=== PATIENT | male | born 1980 | race Caucasian/White ===

== ENCOUNTER 2017-10-09 21:16 | Inpatient (IN) | payer OTHER ==
[~2017-10-09] VITALS: Ht 165.1 cm; Wt 81.2 kg
[2017-10-09 21:22] VITALS: BP 134/85
--- NOTE | 2017-10-09 21:34 | NUR ---
PT ESCORTED TO ROOM 1 VIA WHEEL CHAIR WITH VSS.
--- NOTE | 2017-10-09 21:35 | NUR ---
37/M CAME IN ED WITH FAMILY, C/O 03/14 L TESTICULAR PAIN, NONRADIATING, X2 DAYS. PT STATED HE WAS "TOOK A PILL FROM THE [employer]QU[employer] STORE, WAS MESSING AROUND WITH MY GIRLFRIEND." L TESTICLE SWOLLEN WITH SLIGHT REDNESS, VERY TENDER ON PALPATION. PT REPORTS LIGHTHEADEDNESS AND HEADACHE. PT DENIES FEVER, CP, SOB, N/V/D. DENIES HX, RX. NKA. ER MD DR STEIN NOTIFIED.
[2017-10-09] MEDS ORDERED: KETOROLAC 15 MG/ML VIAL IVP ONE (22:15)
[2017-10-09] MEDS ORDERED: NACL 0.9% 1,000 ML IV SCH (22:15)
[2017-10-09] MEDS ORDERED: ONDANSETRON 4 MG/2 ML VIAL IVP ONE (22:15)
[2017-10-09] MEDS ORDERED: cefTRIAXone 1,000 MG in DEXT 5% MINI-BAG PLUS 50 ML IV ONE (22:15)
[2017-10-09] MEDS ORDERED: LEVOFLOXACIN 750 MG TAB PO ONE (22:15)
[2017-10-09] MEDS ORDERED: MORPHINE SULFATE 10 MG/ML SYR IVP ONE (22:15)
[2017-10-09] MEDS ORDERED: cefTRIAXone 1,000 MG VIAL ONE (22:25)
[2017-10-09] MEDS ORDERED: MORPHINE SULFATE 4 MG/ML SYR ONE (22:26)
[2017-10-09 22:42] LABS: BASOPHILS # (AUTO) 0.1 K/uL (0.00-0.22); BASOPHILS % (AUTO) 0.7 % (0.0-2.0); HEMATOCRIT 47.2 % (36-52); HEMOGLOBIN 16.2 g/dL (12.0-18.0); LYMPHOCYTES # (AUTO) 2.4 K/uL (2.0-11.5); LYMPHOCYTES % (AUTO) 14.5 % (20.5-51.1); MEAN CORPUSCULAR HEMOGLOBIN 31 pg (27-31); MEAN CORPUSCULAR HGB CONC 34 g/dL (33-37); MEAN CORPUSCULAR VOLUME 88.9 fL (80-94); MONOCYTES # (AUTO) 1.2 K/uL (0.8-1.0); MONOCYTES % (AUTO) 7.1 % (1.7-9.3); NEUTROPHILS # (AUTO) 12.8 K/uL (1.8-7.7); NEUTROPHILS % (AUTO) 77.7 % (42.2-75.2); PLATELET COUNT (AUTO) 268 K/uL (140-450); RED BLOOD CELL COUNT(AUTO) 5.31 MIL/uL (4.20-6.10); RED CELL DISTRIBUTION WIDTH 12.5 % (11.6-13.7); WHITE BLOOD COUNT (AUTO) 16.4 K/uL (4.8-10.8)
[2017-10-09 22:50] LABS: ANION GAP 13.4 (8-16); CARBON DIOXIDE 27.8 mmol/L (21-32); CREATININE 1.3 mg/dL (0.7-1.3); POTASSIUM 4.2 mmol/L (3.5-5.1)
[2017-10-09 22:56] LABS: ALBUMIN 3.6 g/dL (3.4-5.0); TOTAL BILIRUBIN 0.5 mg/dL (0.0-1.0)
--- NOTE | 2017-10-09 23:00 | NUR ---
PT STILL UNABLE TO COLLECT URINE, WILL CONTINUE TO ATTEMPT TO COLLECT
[2017-10-10] MEDS ORDERED: NACL 0.9% 2,000 ML IV ONE
--- NOTE | 2017-10-10 | NUR ---
Patient appears to be resting comfortably in bed. Vital Signs within normal limits. Pt reports tolerable pain. Respirations even and unlabored.
--- NOTE | 2017-10-10 00:08 | NUR ---
SPOKE TO EFREN FROM [facility]
[2017-10-10] MEDS ORDERED: ONDANSETRON 4 MG/2 ML VIAL IVP PRN (01:15)
[2017-10-10] MEDS ORDERED: AZITHROMYCIN 500 MG in DEXTROSE 5% 250 ML IV SCH (01:15)
--- NOTE | 2017-10-10 01:30 | NUR ---
PT RESTING COMFORTABLY IN BED, REPORTS TOLERABLE PAIN AT THIS TIME. VSS, RR EVEN AND UNLABORED. PT STILL UNABLE TO COLLECT URINE SAMPLE, WILL ENDORSE TO CONTINUING RN
--- NOTE | 2017-10-10 01:36 | NUR ---
PATIENT TAKEN TO THE FLOOR
[2017-10-10 01:40] VITALS: BP 130/89
--- NOTE | 2017-10-10 01:40 | NUR ---
Admitted from ER , with chief complaint of LEFT TESTICULAR PAIN , 37 y/o ,Male, Appropriate,AAOX4, NO S/S OF ACUTE DISTRESS. PT STATES PAIN IS 3/10 AND TOLERABLE. IV SITE PATENT AND INTACT. PT oriented to call light, bed, phone,television, bathroom, smoking policy,visiting hours, procedures, ID bracelet on. Belongings list checked. CALL LIGHT WITHIN REACH. SAFETY MEASURES ENSURED. WILL CONTINUE TO MONITOR.
--- NOTE | 2017-10-10 01:40 | NUR ---
REPORT GIVEN AND CARE TRANSFERED TO [facility] [place], ROOM [address]B, VIA [facility] WITH VSS.
[2017-10-10] MEDS ORDERED: AZITHROMYCIN 500 MG INJ VIAL IV ONE (02:35)
[2017-10-10] MEDS: NACL 0.9% 1,000 ML IV SCH ×3 (03:17→14:15)
[2017-10-10 04:00] VITALS: BP 128/78
[2017-10-10] MEDS: MORPHINE SULFATE 4 MG/ML SYR IVP PRN ×4 (05:26→19:08)
[2017-10-10 06:22] LABS: BILIRUBIN,URINE NEGATIVE (NEGATIVE); BLOOD, URINE NEGATIVE (NEGATIVE); COLOR,URINE YELLOW (YELLOW); LEUKOCYTE ESTERASE ,URINE 1+ (NEGATIVE); NITRITE, URINE NEGATIVE (NEGATIVE); UGLUCOSE NEGATIVE (NEGATIVE)
--- NOTE | 2017-10-10 07:20 | NUR ---
RECEIVED REPORT FROM LOZENGE MAKER HELPER NURSE. PATIENT LYING DOWN IN BED SLEEPING, AROUSABLE BY VOICE. NO DISTRESS NOTED. PAIN WITHIN TOLERABLE AT THIS TIME DUE TO MORPHINE GIVEN JUST RECENTLY BY NIGHT NURSE. RESPIRATIONS EVEN, UNLABORED, ON ROOM AIR. AAOX4, CALM, COOPERATIVE, SKIN COLOR APPROPRIATE TO ETHNICITY, WARM TO TOUCH. HAS LEFT TESTICLE SWELLING WITH REDNESS, HOWEVER, SKIN IS INTACT THROUGHOUT BODY. ABLE TO AMBULATE BUT CAUSES A LOT OF PAIN DUE TO EPIDIDYMITIS. IV SITE INTACT, PATENT, AND RUNNING IVF PER ORDERS. ABDOMEN SOFT, NON-DISTENDED. LUNGS CTA ON ALL LOBES. REVIEWED PLAN OF CARE WITH PATIENT. PATIENT VERBALIZED UNDERSTANDING. SAFETY MEASURES IN PLACE, CALL LIGHT WITHIN REACH. WILL CONTINUE OT MONITOR.
[2017-10-10 07:33] LABS: APPEARANCE,URINE SLIGHTLY HAZY (CLEAR)
[2017-10-10 07:34] LABS: RBC,URINE NONE SEEN /HPF (0-5); WBC,URINE 80-100 /HPF (0-5)
[2017-10-10 08:00] VITALS: BP 133/95
[2017-10-10] MEDS: ACETAMINOPHEN 325 MG TAB PO PRN ×2 (08:58→19:40)
[2017-10-10] MEDS: ENOXAPARIN 40 MG/0.4 ML SYR SUBQ SCH (09:01)
--- NOTE | 2017-10-10 09:04 | NUR ---
PATIENT LYING IN BED. NO DISTRESS NOTED. COMPLAINS OF A HEADACHE AND HAS A FEVER WITH TEMP AT 100.9, TYLENOL GIVEN PER ORDERS. OTHER SCHEDULED MEDICATIONS DUE GIVEN. SAFETY MEASURES IN PLACE, CALL LIGHT WITHIN REACH. WILL CONTINUE TO MONITOR.
--- NOTE | 2017-10-10 10:00 | NUR ---
PATIENT COMPLAINTS OF 8/10 GROIN PAIN. MORPHINE GIVEN PER ORDERS. SAFETY MEASURES IN PLACE, CALL LIGHT WITHIN REACH. WILL CONTINUE TO MONITOR.
--- NOTE | 2017-10-10 10:58 | NUR ---
PATIENT AMBULATE TO BATHROOM AND BACK TO BED WITH SLOW, BUT STEADY GAIT. PAIN IS WITHIN TOLERABLE WITH MORPHINE GIVEN EARLIER. SAFETY MEASURES IN PLACE, CALL LIGHT WITHIN REACH. WILL CONTINUE TO MONITOR.
[2017-10-10 12:00] VITALS: BP 114/78
--- NOTE | 2017-10-10 12:00 | NUR ---
PATIENT SITTING IN BED WITH LUNCH TRAY IN FRONT. FAMILY MEMBER AT BEDSIDE TALKING WITH PATIENT. NO DISTRESS NOTED. PAIN WITHIN TOLERABLE. SAFETY MEASURES IN PLACE, CALL LIGHT WITHIN REACH. WILL CONTINUE TO MONITOR.
--- NOTE | 2017-10-10 13:09 | NUR ---
PATIENT LYING IN BED SLEEPING, NO DISTRESS NOTED. PAIN WITHIN TOLERABLE. SAFETY MEASURES IN PLACE, CALL LIGHT WITHIN REACH. WILL CONTINUE TO MONITOR.
--- NOTE | 2017-10-10 14:19 | NUR ---
Initial review faxed to [place] at [facility] at [phone]
--- NOTE | 2017-10-10 14:26 | NUR ---
PATIENT LYING IN BED COMPLAINING OF TESTICULAR PAIN, MORPHINE GIVEN PER MD ORDERS. SAFETY MEASURES IN PLACE, CALL LIGHT WITHIN REACH. WILL CONTINUE TO MONITOR.
[2017-10-10] MEDS ORDERED: HYDROcodone/APAP 5/325 MG 1 TAB TAB PO PRN (15:15)
--- NOTE | 2017-10-10 15:39 | NUR ---
PATIENT HAS BEEN SCREENED AND CATEGORIZED LOW NUTRITION RISK. PATIENT WILL BE SEEN WITHIN 7 DAYS OF ADMISSION. 10/16/[address]
[2017-10-10 16:00] VITALS: BP 112/72
--- NOTE | 2017-10-10 17:00 | NUR ---
PATIENT LYING DOWN IN BED SLEEPING, AROUSABLE BY VOICE. NO DISTRESS NOTED. DENIES ANY PAIN. SAFETY MEASURES IN PLACE, CALL LIGHT WITHIN REACH. WILL CONTINUE TO MONITOR.
--- NOTE | 2017-10-10 18:48 | NUR ---
PATIENT LYING IN BED SLEEPING, AROUSABLE BY VOICE. NO DISTRESS NOTED. DENIES ANY PAIN AT THIS TIME. SAFETY MEASURES IN PLACE, CALL LIGHT WITHIN REACH. WILL CONTINUE TO MONITOR.
--- NOTE | 2017-10-10 19:35 | NUR ---
GAVE REPORT TO BOOKING SUPERVISOR NURSE FOR CONTINUITY OF CARE. WILL CONTINUE TO MONITOR.
--- NOTE | 2017-10-10 19:36 | NUR ---
RECEIVED REPORT FROM DAY SHIFT NURSE FOR CONTINUITY OF CARE. PT AWAKE AO X4. PT IV NOTED LAC 20G NS 100ML/HR. PT NO S/S OF DISTRESS. NO SOB. ON RA. BED LOWERED CALL LIGHT WITHIN REACH WILL CONTINUE TO MONITOR.
--- NOTE | 2017-10-10 20:30 | NUR ---
PT HAD PREVIOUS FEVER. PT HAS NO FEVER ANYMORE. WILL CONTINUE TO MONITOR.
[2017-10-10] MEDS ORDERED: LEVOFLOXACIN 500 MG/D5W PREMIX 100 ML IV SCH (21:00)
[2017-10-11 00:06] VITALS: BP 122/79
--- NOTE | 2017-10-11 00:38 | NUR ---
ASSESSED VITALS ON PT. PT WNL. NO S/S OF DISTRESS. NO SOB. PT SLEEPING WILL CONTINUE TO MONITOR.
[2017-10-11] MEDS: ACETAMINOPHEN 325 MG TAB PO PRN (01:22)
[2017-10-11] MEDS ORDERED: ZOLPIDEM 5 MG TAB PO PRN (03:00)
[2017-10-11] MEDS ORDERED: ZOLPIDEM 5 MG TAB ONE (03:08)
[2017-10-11 04:00] VITALS: BP 140/83
--- NOTE | 2017-10-11 04:43 | NUR ---
PT IS ASLEEP. NO S/S OF DISTRESS. NO SOB. ON RA. WILL CONTINUE TO MONITOR.
[2017-10-11 05:46] LABS: BASOPHILS # (AUTO) 0.1 K/uL (0.00-0.22); BASOPHILS % (AUTO) 0.6 % (0.0-2.0); EOSINOPHILS % (AUTO) 0.5 % (0.0-4.0); HEMATOCRIT 43.3 % (36-52); HEMOGLOBIN 14.9 g/dL (12.0-18.0); LYMPHOCYTES # (AUTO) 1.9 K/uL (2.0-11.5); LYMPHOCYTES % (AUTO) 19.1 % (20.5-51.1); MEAN CORPUSCULAR HEMOGLOBIN 30 pg (27-31); MEAN CORPUSCULAR HGB CONC 34 g/dL (33-37); MEAN CORPUSCULAR VOLUME 88.4 fL (80-94); MONOCYTES # (AUTO) 0.9 K/uL (0.8-1.0); MONOCYTES % (AUTO) 9.6 % (1.7-9.3); NEUTROPHILS # (AUTO) 6.8 K/uL (1.8-7.7); NEUTROPHILS % (AUTO) 70.2 % (42.2-75.2); PLATELET COUNT (AUTO) 240 K/uL (140-450); RED CELL DISTRIBUTION WIDTH 12.5 % (11.6-13.7); WHITE BLOOD COUNT (AUTO) 9.7 K/uL (4.8-10.8)
[2017-10-11 06:22] LABS: ALBUMIN 2.9 g/dL (3.4-5.0); ANION GAP 13.7 (8-16); CARBON DIOXIDE 25.4 mmol/L (21-32); CREATININE 1.1 mg/dL (0.7-1.3); POTASSIUM 4.1 mmol/L (3.5-5.1); TOTAL BILIRUBIN 0.6 mg/dL (0.0-1.0)
--- NOTE | 2017-10-11 07:05 | NUR ---
RECEIVED REPORT FROM NIGHTSHIFT NURSE AT BEDSIDE. PATIENT IS ASLEEP BUT AROUSABLE AT THIS TIME. PATIENT IS ALERT AND ORIENTED X4. PATIENT PRESENTS IN RIGHT LATERAL SIDE LYING POSITION WITH NO PAIN. NO SIGNS OF RESPIRATORY DISTRESS. PATIENT HAS A LEFT AC 20G NOTED ON HIS ARM SALINE LOCK. UPDATED BOARD IN PATIENT'S ROOM. PUT CALL LIGHT WITHIN REACH OF PATIENT. WILL CONTINUE TO MONITOR PATIENT.
--- NOTE | 2017-10-11 07:15 | NUR ---
GAVE REPORT TO DAYSHIFT NURSE AT BEDSIDE FOR CONTINUITY OF CARE.
[2017-10-11 08:00] VITALS: BP 131/90
[2017-10-11] MEDS: ENOXAPARIN 40 MG/0.4 ML SYR SUBQ SCH (10:23)
--- NOTE | 2017-10-11 10:23 | NUR ---
GAVE PATIENT'S LOVENOX SHOT TO PATIENT'S ABDOMEN. PATIENT TOLERATED WELL.
[2017-10-11] MEDS: MORPHINE SULFATE 4 MG/ML SYR IVP PRN ×2 (11:22→11:24)
[2017-10-11 12:00] VITALS: BP 128/91
--- NOTE | 2017-10-11 12:00 | NUR ---
PATIENT'S IV LINE ON LEFT AC CAME OUT. STARTED A NEW IV LINE ON THE PATIENT'S RIGHT FOREARM 22 G. PATIENT TOLERATED WELL. WILL CONTINUE TO MONITOR PATIENT.
--- NOTE | 2017-10-11 14:23 | NUR ---
PATIENT WATCHING TELEVISION AT THIS TIME. NO COMPLAINTS OF PAIN. WILL CONTINUE TO MONITOR PATIENT.
[2017-10-11 16:00] VITALS: BP 120/89
[2017-10-11] MEDS ORDERED: LEVO500T2 PO (16:18)
--- NOTE | 2017-10-11 16:23 | NUR ---
FAXED CONCURRENT REVIEW TO [facility] [phone] PHONE PREETHI [phone]
--- NOTE | 2017-10-11 18:34 | NUR ---
PATIENT SIGNED ALL PAPERWORK AND UNDERSTOOD ALL DISCHARGE INSTRUCTIONS. DISCONTINUED PATIENT'S IV WITH CATHETER STILL INTACT. REMOVED PATIENT'S ID BANDS. REMOVED PATIENT'S TELE MONITOR. PATIENT GATHERED ALL BELONGINGS AND LEFT THE UNIT VIA WHEELCHAIR.
[2017-10-12 06:18] LABS: CHLAMYDIA TRACHOMATIS AMP DNA Negative (Negative)
--- NOTE | 2017-10-12 08:30 | NUR ---
received positive n.[email or web address] from lab---reviewed pt's chart with appropriate treatment given to pt while in the ER as ordered by no further intervention required at this time
== END 2017-10-11 18:34 | disposition home or self-care (01) | DRG 501 ==
LOC: MED 21:16 → MTU 10-10 01:28
PROVIDERS: ADMIT Internal Medicine; ATTEND Internal Medicine
DX: N45.3 Epididymo-orchitis (principal); R65.10 Systemic inflammatory response syndrome (SIRS) of non-infectious origin without acute organ dysfunction; F17.210 Nicotine dependence, cigarettes, uncomplicated; E87.1 Hypo-osmolality and hyponatremia
CPT/HCPCS: 36415; 76870; 80053; 81001; 83605; 83690; 85025; 87040; 87081; 87086; 87491; 96361; 96365; 96375; 99285; J0456; J0696; J1650; J1885; J1956; J2270; J2405; J7030; J7060; Q0092